=== PATIENT | female | born 1985 | race Caucasian/White ===

== ENCOUNTER → 2018-01-05 | Outpatient (CLI) | payer BC ==
[~2018-01-05] VITALS: Ht 160 cm; Wt 63.0 kg
[~2018-01-05] MED LIST: PRENATAL TABLE1 EAC3 PO
[2018-01-05 08:23] VITALS: BP 133/66
== END | disposition home or self-care (01) ==
LOC: IVINF 08:00
DX: Z34.83 Encounter for supervision of other normal pregnancy, third trimester (principal); Z31.82 Encounter for Rh incompatibility status; Z3A.28 28 weeks gestation of pregnancy; Z67.11 Type A blood, Rh negative
CPT/HCPCS: 96372; J2790